=== PATIENT | female | born 1980 | race Caucasian/White ===

== ENCOUNTER 2023-02-01 11:33 | Emergency (ER) | payer MEDICAID, OTHER ==
[~2023-02-01] VITALS: Ht 157.5 cm; Wt 61.8 kg
[2023-02-01 11:51] VITALS: BP 138/99
[2023-02-01] MEDS ORDERED: FLUORESCEIN SODIUM 1MG/STRIP LEFTEYE ONE (13:00)
[2023-02-01] MEDS ORDERED: TETRACAINE 0.5% OPHTH DROPS 4ML LEFTEYE ONE (13:00)
[2023-02-01] MEDS ORDERED: OFLO5DRO3 LEFTEYE (15:12)
[2023-02-01] MEDS ORDERED: IBUP-2029 MT (15:12)
[2023-02-01] MEDS ORDERED: TOPUD MT (15:12)
[2023-02-01] MEDS ORDERED: TETANUS, DIPHTHERIA, PERTUSSIS VAC/PF 0.5ML (>10YR OLD) IM ONE (15:15)
== END 2023-02-01 15:31 | disposition home or self-care (01) ==
LOC: ER 11:33
DX: H10.212 Acute toxic conjunctivitis, left eye (principal); E11.9 Type 2 diabetes mellitus without complications
CPT/HCPCS: 90471; 90715; 99283; Z7610